=== PATIENT | female | born 1975 | race African-American/Black ===

== ENCOUNTER 2018-09-18 06:48 | Inpatient (IN) | payer BC ==
[2018-09-18] MEDS ORDERED: Heparin 25,000 units/D5W 500 ML ONE (06:58)
[2018-09-18 11:04] LABS: Troponin I Less than 0.010 ng/mL (< 0.028)
[2018-09-18] MEDS ORDERED: Dextrose 5% in Water 1,000 ML IV PRN (11:55)
[2018-09-18] MEDS ORDERED: HumaLOG 300 UNITS/3 ML VIAL SC PRN (11:55)
[2018-09-18] MEDS ORDERED: hydrALAZINE 20 MG/ML VIAL SLOW IVP PRN (11:55)
[2018-09-18] MEDS ORDERED: Dextrose 50% Abboject 50 ML SYRINGE SLOW IVP PRN (11:55)
[2018-09-18] MEDS ORDERED: Ondansetron ODT 4 MG TAB SL PRN (11:57)
[2018-09-18] MEDS ORDERED: Ondansetron PF 4 MG/2 ML Vial IVP PRN (11:57)
[2018-09-18] MEDS ORDERED: Acetaminophen 325 MG TAB PO PRN (11:57)
[2018-09-18 12:21] VITALS: BMI 34.6
[2018-09-18] MEDS: Ondansetron ODT 4 MG TAB PO PRN ×2 (12:46→23:59)
[2018-09-18] MEDS: Acetaminophen 325 MG TAB PO PRN ×2 (12:46→23:59)
--- NOTE | 2018-09-18 14:27 | PDOC.FPRHP ---
- History of Present Illness Chief Complaint: Chest pain History of Present Illness: 42 year old female presents with chest pain onset at 20:33 last night. Patient states the chest pain is sharp in nature, located on left side of chest and radiates into left shoulder. Associated symptoms include nausea and 3 episodes of emesis earlier this morning. Patient states she had similar chest pain once before while in the car driving that resolved on its own. She has never experienced chest pain with exertion. Patient states she has no family history of early CAD. She does have personal history of HTN, DM type II uncontrolled, and HLD. Patient states that nitro relieved chest pain, although it did not relieve it right away. Patient denied chest pain during my evaluation. She denies associated shortness of breath. She states her BG is never less than 200. Nothing in particular made the chest pain worse. Patient does endorse cough over the last few weeks for which she has been taking tessalon pearls. Patient states chest pain worsened by coughing. ED Course: Given Heparin in ED. - Allergies/Adverse Reactions Allergies Allergy/AdvReac Type Severity Reaction Status Date / Time latex Allergy Verified 09/18/18 12:09 - Home Medications Medication Instructions Recorded Confirmed Type Atorvastatin Calcium [Lipitor] 40 mg PO HS 09/18/18 09/18/18 History Benzonatate 1 - 2 tab PO TID PRN 09/18/18 09/18/18 History Lisinopril/Hydrochlorothiazide 1 tab PO DAILY 09/18/18 09/18/18 History [Lisinopril-Hctz 10-12.5 mg Tab] Montelukast Sodium 10 mg PO HS 09/18/18 09/18/18 History Pantoprazole [Protonix] 40 mg PO HS 09/18/18 09/18/18 History metFORMIN HCl [Metformin HCl ER] 750 mg PO DAILY 09/18/18 09/18/18 History - History PMHx: HTN, HLD, DM type II uncontrolled PSHx: BTL, left forearm surgery FHx: Aunt one year old that passed from bilateral PE's Social: Denies alcohol, tobacco, or drug use. 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 - Review of Systems General: denies: fever/chills, weight/appetite/sleep changes Eyes: denies: eye pain, vision changes ENT: denies: nasal congestion, rhinorrhea Respiratory: reports: cough. denies: congestion, shortness of breath Cardiovascular: reports: chest pain. denies: palpitation, edema Gastrointestinal: reports: nausea, vomiting. denies: diarrhea, constipation Genitourinary: denies: incontinence, dysuria, polyuria Skin: denies: rashes, lesions Musculoskeletal: denies: pain, tenderness Neurological: denies: numbness, syncope, seizure Psychological: denies: anxiety, depression - Vital signs BP: 119/65 HR: 77 RR: 20 Tmax: 98.3F Pox: 95% on RA Wt: 77.8 kg - Physical Exam Constitutional: NAD, awake, alert and oriented, well developed HEENT: normocephalic and atraumatic, PERRLA, EOMI, no scleral icterus, grossly normal vision, grossly normal hearing, MMM -Chest: Tender to palpation over left anterior chest wall. Heart: RRR, normal S1/S2, no murmurs/rubs/gallops Lungs: CTAB, no respiratory distress, no wheezing Abdomen: soft, non-tender, bowel sounds present Musculoskeletal: normal structure Neurological: no focal deficit, CN II-XII intact, normal sensation Skin: no rash/lesions, good turgor, capillary refill <2 seconds Heme/Lymphatic: no unusual bruising or bleeding, no purpura Psychiatric: normal mood and affect, good judgment and insight, intact recent and remote memory FMR H&P: A/P - Problem List (1) Atypical chest pain Current Visit: Yes Status: Acute Code(s): R07.89 - OTHER CHEST PAIN (2) LBBB (left bundle branch block) Current Visit: Yes Status: Acute Code(s): I44.7 - LEFT BUNDLE-BRANCH BLOCK, UNSPECIFIED (3) HTN (hypertension) Current Visit: Yes Status: Acute Code(s): I10 - ESSENTIAL (PRIMARY) HYPERTENSION (4) Diabetes type 2, uncontrolled Current Visit: Yes Status: Acute Code(s): E11.65 - TYPE 2 DIABETES MELLITUS WITH HYPERGLYCEMIA (5) HLD (hyperlipidemia) Current Visit: Yes Status: Acute Code(s): E78.5 - HYPERLIPIDEMIA, UNSPECIFIED FMR H&P: Upper Level - Plan Date/Time: 09/18/18 1423 I, [], have evaluated this patient and agree with findings/plan as outlined by academic intern resident. Pertinent changes/additions are listed here. Addendum - Attending - Attending Attestation Date/Time: 09/18/18 8799 I personally evaluated the patient and discussed the management with Dr. Mistry I agree with the History, Examination, Assessment and Plan documented above with any addition or exceptions noted below. 42 yo Diabetic female with atypical CP nonexertional CP with risk factors for CVD will admit r/o ACS and note LBBB will need nuclear med stress imaging.
[2018-09-18] MEDS ORDERED: Benzonatate 100 MG CAP PO PRN (17:35)
[2018-09-18] MEDS: HumaLOG 300 UNITS/3 ML VIAL SC PRN (17:52)
[2018-09-18 18:43] LABS: Hemoglobin A1c 9.3 % (4.0-6.0)
[2018-09-18 18:56] LABS: Anion Gap 13 mmol/L (10-20); BUN (Urea Nitrogen) 12 mg/dL (7.0-18.7); Calc. Creatinine Clearance 128 mL/min (70-130); Calcium 9.1 mg/dL (7.8-10.44); Carbon Dioxide 24 mmol/L (22-29); Chloride 102 mmol/L (98-107); Estimated GFR-MDRD Greater than 90; Glucose 218 mg/dL (70-105); Magnesium 1.5 mg/dL (1.6-2.6); Phosphorus 3.2 mg/dL (2.3-4.7); Potassium 3.6 mmol/L (3.5-5.1); Sodium 135 mmol/L (136-145)
[2018-09-18] MEDS ORDERED: Magnesium Oxide 400 MG TAB PO SCH (20:45)
[2018-09-18] MEDS: Atorvastatin Calcium 20 MG TAB PO SCH (21:09)
[2018-09-18] MEDS: Montelukast Sodium 10 mg Tablet PO SCH (21:09)
--- NOTE | 2018-09-19 08:03 | PDOC.FM ---
- Subjective Subjective: Patient doing well this AM. No significant overnight events. Patient reports that she is feeling much better today. She had one more episode of chest pain which was short lived and resolved on its own. Denies any chest pain, shortness of breath, N/V currently. Discussed BG control. Patient agrees and is willing to be started on insulin. She is going to switch PCPs so that she can get in with someone that can see her more frequently. She understands the importance of good BG control and is willing to comply. She has no hesitations about starting insulin. - Objective MAR Reviewed: Yes Vital Signs & Weight: Vital Signs (12 hours) Temp Pulse Resp BP Pulse Ox 09/19/18 07:41 97.9 F 66 18 131/80 96 09/19/18 04:15 98.1 F 67 15 120/65 98 09/18/18 23:56 99.2 F 89 16 132/64 95 Weight Weight 77.337 kg I&O: 09/18/18 09/19/18 09/20/18 06:59 06:59 06:59 Intake Total 480 Balance 480 Result Diagrams: 09/18/18 18:23 EKG Reviewed by me: Yes Radiology Reviewed by me: Yes Phys Exam - Physical Examination Constitutional: NAD HEENT: moist MMs, oral pharynx no lesions Respiratory: clear to auscultation bilateral Cardiovascular: RRR, no significant murmur Gastrointestinal: soft, non-tender, no distention Musculoskeletal: no edema, pulses present Neurological: non-focal, moves all 4 limbs Psychiatric: normal affect, A&O x 3 Skin: no rash, cap refill <2 seconds Dx/Plan (1) Atypical chest pain Code(s): R07.89 - OTHER CHEST PAIN Status: Acute (2) LBBB (left bundle branch block) Code(s): I44.7 - LEFT BUNDLE-BRANCH BLOCK, UNSPECIFIED Status: Acute (3) HTN (hypertension) Code(s): I10 - ESSENTIAL (PRIMARY) HYPERTENSION Status: Acute (4) Diabetes type 2, uncontrolled Code(s): E11.65 - TYPE 2 DIABETES MELLITUS WITH HYPERGLYCEMIA Status: Acute (5) HLD (hyperlipidemia) Code(s): E78.5 - HYPERLIPIDEMIA, UNSPECIFIED Status: Acute - Plan Plan: 1. Atypical chest pain - Asymptomatic on evaluation - No chest pain with exertion - CP reproducible with palpation of anterior, superior chest wall - EKG did show LBBB, no prior EKG's in our system for comparison (3 additional EKG's with similar findings) - Trop neg x3 - Heart score of 4; RF's include HLD, HTN, DM uncontrolled - Nuclear stress test d/t LBBB; will get second portion today - Nitro PRN - Daily ASA - Continue Atorvastatin - HgA1c 9.4% - FLP pending - TSH and Ph WNL 2. HTN - Continue home medications - PRN for SBP >180 3. Uncontrolled type II DM - Patient only on metformin, but BG never below 200 - She was reportedly taken off other medication because it made her not feel well - SSI and discussion about addition of another medication for better control - Continue ASA, DORITA-I, Statin - HgA1c 9.4% - Had lengthy discussion about recommendation for being on insulin. Patient is completely understanding and willing to start on insulin. Discussed starting in hospital vs. starting as outpatient. Patient plans to switch to PCP she can get in to see more frequently for closer follow up. She will request to be started on insulin once she finds new PCP. I agree with waiting as patient will need close monitoring. 4. HLD - Continue statin Dispo: Tele obs. Pending stress test results. Addendum - Attending - Attending Attestation Date/Time: 09/19/18 1017 I personally evaluated the patient and discussed the management with Dr. Mistry I agree with the History, Examination, Assessment and Plan documented above with any addition or exceptions noted below. Patient pending f/u nuclear imaging this am potential dismissal pending results. Will need outpt PCP f/u consider improved DM control patient expressing willingness to start injectable basal insulin etc.
[2018-09-19] MEDS ORDERED: Nitroglycerin 0.4 MG TAB (25 Tab Bottle) SL PRN (08:05)
[2018-09-19] MEDS: Aspirin 81 mg Enteric Coated Tablet PO SCH (08:15)
[2018-09-19] MEDS: Lisinopril/Hydrochlorothiazide 10 mg/12.5 mg Tablet PO SCH (08:15)
[2018-09-19] MEDS ORDERED: ADENOSINE 60 MG/20 ML VIAL ONE (08:23)
[2018-09-19 08:27] LABS: Cardiac Risk 4.5 (Less than 4.5); Magnesium 1.8 mg/dL (1.6-2.6)
[2018-09-19] MEDS ORDERED: Enoxaparin Sodium 40 MG/0.4 ML SYRINGE SC SCH (09:00)
--- NOTE | 2018-09-19 13:44 | NM ---
Radionucleotide stress and rest myocardial perfusion scan with CT attenuation correction and SPECT im aging HISTORY: Chest pain. Hypertension. FINDINGS: Adenosine protocol. Heterogeneous uptake of radiotracer throughout the left ventricular myocardium. Moderate sized area o f moderately diminished radiotracer uptake involving the apex and distal portion of the anteroseptal wall. Slight improvement on the rest images compared to stress. No other focal areas of perfusion defect. Q GS analysis of gated SPECT images shows relative hypokinesis of the septum. Ejection fraction calcu lated at 58%. IMPRESSION: Probably abnormal perfusion study showing a moderate sized area of mildly reversible perf usion defect. Possible ischemia in the distal portion of the LAD. Preserved LVEF.
[2018-09-19] MEDS: Acetaminophen 325 MG TAB PO PRN (18:41)
[2018-09-19] MEDS: Nitroglycerin 2% Ointment 1 INCH/1 GM Packet TOP SCH (18:42)
[2018-09-19] MEDS: Ondansetron ODT 4 MG TAB PO PRN (19:27)
[2018-09-19] MEDS ORDERED: Ondansetron PF 4 MG/2 ML Vial IVP PRN (20:45)
[2018-09-19] MEDS ORDERED: Ondansetron ODT 4 MG TAB PO PRN (20:45)
[2018-09-19] MEDS ORDERED: Promethazine HCl 25 MG/ML VIAL IM/IV PRN (20:45)
[2018-09-19] MEDS: Enoxaparin Sodium 80 MG/0.8 ML SYRINGE SC SCH (21:12)
[2018-09-19] MEDS: Montelukast Sodium 10 mg Tablet PO SCH (21:12)
[2018-09-19] MEDS: Atorvastatin Calcium 20 MG TAB PO SCH (21:12)
--- NOTE | 2018-09-20 00:29 | CON ---
DATE OF CONSULTATION: HISTORY OF PRESENT ILLNESS: The patient is a 42-year-old woman who presented with left-sided chest discomfort. The patient has no previous cardiac history. She states for the past 2 months she has had occasional left-sided chest discomfort.This radiates into her jaw and down her left arm. This usually last less than a minute. The day of admission, the patient presented with the same discomfort. She became markedly diaphoretic. She presented to the emergency room. The patient received sublingual nitroglycerin with resolution of her chest discomfort. The patient denies having any present chest discomfort. PAST MEDICAL HISTORY: 1. Diabetes mellitus. 2. Hypertension. 3. Hypercholesterolemia. PAST SURGICAL HISTORY: Tubal ligation. MEDICATIONS ON ADMISSION: 1. Metformin 750 daily. 2. Lisinopril/HCTZ 10/12.5 daily. 3. Protonix 40 daily. 4. Lipitor 40 at bedtime. 5. Aspirin tablet daily. 6. Montelukast Sodium 10 mg p.o. at bedtime. ALLERGIES: NO KNOWN DRUG ALLERGIES. FAMILY HISTORY: No strong family history of heart disease. SOCIAL HISTORY: Nonsmoker. REVIEW OF SYSTEMS: Ten-point system otherwise unremarkable. PHYSICAL EXAMINATION: GENERAL: Obese woman, in no acute distress. VITAL SIGNS: Blood pressure 124/73. NECK: No jugular venous distention. LUNGS: Clear to auscultation. HEART: Regular rate and rhythm. Normal S1, S2. No murmurs. ABDOMEN: Nondistended. EXTREMITIES: Showed no edema. SKIN: Warm and dry. NEUROLOGIC: Nonfocal. VASCULAR: Radial pulses are 2+. LABORATORY RESULTS: Her sodium was 135, potassium 3.6, chloride 102, bicarbonate 24, BUN 12, creatinine 0.71, glucose is 218. Her troponin was less than 0.01. White blood cell count was 8.9, hemoglobin 13.1, hematocrit 39.1, platelets are 290. IMAGING: EKG revealed normal sinus rhythm with a left bundle branch block. Her Cardiolite stress test revealed her to have normal left ventricular ejection fraction 58% with ischemia in the distal portion of the LAD. IMPRESSION: 1. Chest pain suggestive of angina. 2. Abnormal stress test. 3. Diabetes mellitus. 4. Hypertension. 5. Left bundle branch block. PLAN: This patient presents with unstable angina. The patient underwent a stress test today that revealed evidence of ischemia. At this time, the patient will be treated with subcutaneous Lovenox and nitroglycerin. We will hold beta james therapy with her conduction disease. We will proceed with cardiac catheterization during this hospitalization. Job ID: [id number] [facility]
[2018-09-20] MEDS: Nitroglycerin 2% Ointment 1 INCH/1 GM Packet TOP SCH ×3 (05:40→21:40)
--- NOTE | 2018-09-20 05:59 | PDOC.FM ---
- Subjective Subjective: No CP, SOB, nausea, vomiting, or abdominal pain overnight. Pt reports phenargan improved her nausea last night. She reports sleeping well. - Objective MAR Reviewed: Yes Vital Signs & Weight: Vital Signs (12 hours) Temp Pulse Resp BP Pulse Ox 09/20/18 03:26 98.4 F 76 16 131/68 98 09/19/18 20:00 95 09/19/18 19:09 98.5 F 82 16 117/58 L 95 Weight Weight 77.337 kg I&O: 09/18/18 09/19/18 09/20/18 06:59 06:59 06:59 Intake Total 480 Balance 480 Result Diagrams: 09/18/18 18:23 Phys Exam - Physical Examination Constitutional: NAD HEENT: moist MMs Neck: no JVD, full ROM Respiratory: no wheezing, no rales, clear to auscultation bilateral Cardiovascular: RRR, no significant murmur, no rub Gastrointestinal: soft, non-tender, no distention, positive bowel sounds Musculoskeletal: no edema, pulses present Neurological: moves all 4 limbs Psychiatric: normal affect, A&O x 3 Skin: normal turgor, cap refill <2 seconds Dx/Plan (1) Unstable angina Status: Acute (2) Diabetes type 2, uncontrolled Code(s): E11.65 - TYPE 2 DIABETES MELLITUS WITH HYPERGLYCEMIA Status: Acute (3) HLD (hyperlipidemia) Code(s): E78.5 - HYPERLIPIDEMIA, UNSPECIFIED Status: Acute (4) HTN (hypertension) Code(s): I10 - ESSENTIAL (PRIMARY) HYPERTENSION Status: Acute (5) LBBB (left bundle branch block) Code(s): I44.7 - LEFT BUNDLE-BRANCH BLOCK, UNSPECIFIED Status: Acute - Plan Plan: This is a 42 yo female with a pmh of HTN, DM2, HLD Unstable angina -EKG shows new LBBB -Stress test shows reversible ischemia -Continue lovenox and PRN nitro -Daily ASA -Pt to be cathed on Saturday -Continue atorvastatin -FLP near goal HTN -Continue Lisinopril HCTZ -PRN for SBP>180 Uncontrolled DM2 -Continue home metformin -Pt is staying the weekend and we will titrate insulin therapy -A1c 9.4% HLD -Continue statin Addendum - Attending - Attending Attestation Date/Time: 09/20/18 9067 I personally evaluated the patient and discussed the management with Dr. Jha I agree with the History, Examination, Assessment and Plan documented above with any addition or exceptions noted below. Patient without complaints denies further CP for Heart catherization Saturday.
[2018-09-20] MEDS: Enoxaparin Sodium 80 MG/0.8 ML SYRINGE SC SCH ×2 (08:43→20:22)
[2018-09-20] MEDS: Lisinopril/Hydrochlorothiazide 10 mg/12.5 mg Tablet PO SCH (08:43)
[2018-09-20] MEDS: Aspirin 81 mg Enteric Coated Tablet PO SCH (08:43)
[2018-09-20] MEDS ORDERED: Insulin Glargine 10 UNITS in Pre-Filled Syringe 1 EACH SC SCH (10:15)
[2018-09-20] MEDS: HumaLOG 300 UNITS/3 ML VIAL SC PRN ×2 (11:18→17:12)
[2018-09-20 17:52] LABS: Hemoglobin 12.8 g/dL (12.0-16.0); Platelet Count 278 thou/uL (130-400)
[2018-09-20 18:08] LABS: Calc. Creatinine Clearance 109 mL/min (70-130); Estimated GFR-MDRD Greater than 90
[2018-09-20] MEDS: Atorvastatin Calcium 20 MG TAB PO SCH (20:22)
[2018-09-20] MEDS: Montelukast Sodium 10 mg Tablet PO SCH (20:22)
[2018-09-21] MEDS: Nitroglycerin 2% Ointment 1 INCH/1 GM Packet TOP SCH ×3 (05:59→20:41)
--- NOTE | 2018-09-21 06:25 | PDOC.FM ---
- Subjective Subjective: Pt reports doing well overnight. She denies CP, headaches, SOB, nausea, or vomiting. - Objective MAR Reviewed: Yes Vital Signs & Weight: Vital Signs (12 hours) Temp Pulse Resp BP Pulse Ox 09/21/18 04:00 98.2 F 77 16 124/67 96 09/20/18 23:21 98.1 F 84 16 117/63 94 L 09/20/18 20:00 94 L 09/20/18 18:50 98.3 F 83 18 113/68 94 L Weight Weight 77.337 kg I&O: 09/19/18 09/20/18 09/21/18 06:59 06:59 06:59 Intake Total 480 1200 Balance 480 1200 Result Diagrams: 09/20/18 17:43 09/20/18 17:43 Phys Exam - Physical Examination Constitutional: NAD HEENT: moist MMs Neck: no JVD, full ROM Respiratory: no wheezing, no rales, clear to auscultation bilateral Cardiovascular: RRR, no significant murmur Gastrointestinal: soft, non-tender, no distention, positive bowel sounds Musculoskeletal: no edema, pulses present Neurological: normal sensation, moves all 4 limbs Psychiatric: normal affect, A&O x 3 Skin: cap refill <2 seconds Dx/Plan (1) Unstable angina Status: Acute (2) Diabetes type 2, uncontrolled Code(s): E11.65 - TYPE 2 DIABETES MELLITUS WITH HYPERGLYCEMIA Status: Acute (3) HLD (hyperlipidemia) Code(s): E78.5 - HYPERLIPIDEMIA, UNSPECIFIED Status: Acute (4) HTN (hypertension) Code(s): I10 - ESSENTIAL (PRIMARY) HYPERTENSION Status: Acute (5) LBBB (left bundle branch block) Code(s): I44.7 - LEFT BUNDLE-BRANCH BLOCK, UNSPECIFIED Status: Acute - Plan Plan: This is a 42 yo female with a pmh of HTN, DM2, HLD Unstable angina -EKG shows new LBBB -Stress test shows reversible ischemia -Continue lovenox and PRN nitro -Daily ASA -Pt to be cathed on Saturday -Continue atorvastatin -FLP near goal HTN -Continue Lisinopril HCTZ -PRN for SBP>180 Uncontrolled DM2 -Continue home metformin -Pt is staying the weekend and we will titrate insulin therapy -A1c 9.4% HLD -Continue statin Addendum - Attending - Attending Attestation Date/Time: 09/21/18 1233 I personally evaluated the patient and discussed the management with Dr. Jha I agree with the History, Examination, Assessment and Plan documented above with any addition or exceptions noted below. 42 yo diabetic female with Chest pain risk factors DM2, HTN, dyslipidemia with abnormal stress test for Heart cath tomorrow.
[2018-09-21] MEDS: HumaLOG 300 UNITS/3 ML VIAL SC PRN ×3 (06:31→16:47)
[2018-09-21] MEDS: Enoxaparin Sodium 80 MG/0.8 ML SYRINGE SC SCH (08:06)
[2018-09-21] MEDS: Lisinopril/Hydrochlorothiazide 10 mg/12.5 mg Tablet PO SCH (08:07)
[2018-09-21] MEDS: Aspirin 81 mg Enteric Coated Tablet PO SCH (08:07)
[2018-09-21] MEDS ORDERED: Insulin Glargine 13 UNITS in Pre-Filled Syringe 1 EACH SC SCH (09:00)
[2018-09-21] MEDS ORDERED: Insulin Glargine 10 UNITS in Pre-Filled Syringe 1 EACH SC SCH (09:00)
[2018-09-21] MEDS ORDERED: Communication Order-Pharmacy FS SCH (12:15)
--- NOTE | 2018-09-21 13:59 | EKG ---
Test Reason : STAT Blood Pressure : / mmHG Vent. Rate : 082 BPM Atrial Rate : 082 BPM P-R Int : 154 ms QRS Dur : 130 ms QT Int : 412 ms P-R-T Axes : 024 -32 111 degrees QTc Int : 481 ms Normal sinus rhythm Left axis deviation Left bundle branch block Abnormal ECG When compared with ECG of 18-SEP-2018 07:09, (Unconfirmed) No significant change was found Confirmed by YESSY HUGHES ([id number]) on 09/21/2018 1:59:11 PM Referred By: NANCY Confirmed By:YESSY HUGHES
[2018-09-21] MEDS: Atorvastatin Calcium 20 MG TAB PO SCH (20:41)
[2018-09-21] MEDS: Montelukast Sodium 10 mg Tablet PO SCH (20:41)
[2018-09-22] MEDS: Nitroglycerin 2% Ointment 1 INCH/1 GM Packet TOP SCH (05:13)
[2018-09-22] MEDS: Aspirin 81 mg Enteric Coated Tablet PO SCH (05:14)
[2018-09-22] MEDS: Lisinopril/Hydrochlorothiazide 10 mg/12.5 mg Tablet PO SCH (08:11)
--- NOTE | 2018-09-22 08:56 | PDOC.FM ---
- Subjective Subjective: Patient doing well this AM. No significant overnight events. Patient denies any chest pain this morning or over the weekend. She is scheduled for cardiac catheterization this AM. She denies shortness of breath or swelling. Patient is in good spirits. - Objective MAR Reviewed: Yes Vital Signs & Weight: Vital Signs (12 hours) Temp Pulse Resp BP Pulse Ox 09/22/18 08:11 82 09/22/18 07:38 97.9 F 76 16 113/66 94 L 09/22/18 04:00 98.3 F 82 16 118/72 96 Weight Weight 76.839 kg I&O: 09/21/18 09/22/18 09/23/18 06:59 06:59 06:59 Intake Total 1200 Balance 1200 Result Diagrams: 09/20/18 17:43 09/20/18 17:43 EKG Reviewed by me: Yes Radiology Reviewed by me: Yes Phys Exam - Physical Examination Constitutional: NAD HEENT: moist MMs Respiratory: clear to auscultation bilateral Cardiovascular: RRR, no significant murmur Gastrointestinal: soft, non-tender, no distention, positive bowel sounds Musculoskeletal: no edema, pulses present Neurological: non-focal, moves all 4 limbs Psychiatric: normal affect, A&O x 3 Dx/Plan (1) Unstable angina Status: Acute (2) LBBB (left bundle branch block) Code(s): I44.7 - LEFT BUNDLE-BRANCH BLOCK, UNSPECIFIED Status: Acute (3) HTN (hypertension) Code(s): I10 - ESSENTIAL (PRIMARY) HYPERTENSION Status: Acute (4) Diabetes type 2, uncontrolled Code(s): E11.65 - TYPE 2 DIABETES MELLITUS WITH HYPERGLYCEMIA Status: Acute (5) HLD (hyperlipidemia) Code(s): E78.5 - HYPERLIPIDEMIA, UNSPECIFIED Status: Acute - Plan Plan: This is a 42 yo female with a PMH of HTN, DM2, HLD Unstable angina - EKG shows likely new LBBB given stress test results (no EKG's for comparison) - Stress test shows reversible ischemia in distal LAD - PRN nitro - Therapeutic lovenox d/c'd yesteraay AM in preparation for cardiac cath this AM - Daily ASA - Pending cardiac cath this AM - Continue high intensity atorvastatin - FLP near goal - Cardiology consulted; appreciate recs HTN - Continue Lisinopril/HCTZ - PRN for SBP>180 Uncontrolled DM2 - Continue home metformin - Started on insulin therapy during hospitalization. Continue titration. - A1c 9.4% HLD - Continue statin HFrEF likely 2/2 ischemic heart disease - Recent echo w/ EF 40-45% - Continue DORITA-I, statin, ASA - BB to be added after cardiac cath - Pending cardiac cath; abnormal stress test with reversible ischemia of distal LAD Dispo: Pending cardiac cath this AM. Dispo pending results of cath and Cards recs. Addendum - Attending - Attending Attestation Date/Time: 09/23/18 1233 I personally evaluated the patient and discussed the management with Dr. Mistry on 09/22/2018 I agree with the History, Examination, Assessment and Plan documented above with any addition or exceptions noted below - Patient without complaints. Just returned from cardiac cath which was negative per patient. Afebrile VSS. A/P: 1 ) Chest pain- negative cath. Plan to d/c home later today. 2) DM- stable; continue to adjust medication as outpatient.
[2018-09-22] MEDS ORDERED: Insulin Glargine 18 UNITS in Pre-Filled Syringe 1 EACH SC SCH (09:00)
[2018-09-22] MEDS ORDERED: Iopamidol 370 76% 100 ML VIAL ONE (09:50)
[2018-09-22] MEDS ORDERED: Midazolam HCl 2 mg/2 ml Vial ONE (10:21)
[2018-09-22] MEDS ORDERED: Sodium Chloride 0.9% 200 ML IV PRN (10:43)
[2018-09-22] MEDS ORDERED: Acetaminophen/Codeine 30-300mg Tablet PO PRN ×2 (10:43)
[2018-09-22] MEDS ORDERED: Nitroglycerin 0.4 MG TAB (25 Tab Bottle) SL PRN (10:43)
[2018-09-22] MEDS: Acetaminophen 325 MG TAB PO PRN (12:01)
[2018-09-22 15:51] VITALS: BP 141/68; TEMP 97.8
--- NOTE | 2018-09-23 05:40 | DIS ---
DATE OF ADMISSION: 09/19/2018 DATE OF DISCHARGE: 09/22/2018 RESIDENT: Melissa Mistry DO ADMITTING ATTENDING: Eliezer Murcia MD DISCHARGE ATTENDING: Laura Burk MD CONSULTS: Cardiology, John Grissom MD PROCEDURES PERFORMED: 1. Radionuclide stress and rest myocardial perfusion scan with CT attenuation correction. SPECT imaging showed probably abnormal perfusion study showing a moderate-sized area of mildly reversible perfusion defect. There is possible ischemia in the distal portion of the LAD. 2. Cardiac cath showed normal ejection fraction and no evidence of stenosis. There were small vessels noted in the distal LAD, as well as RCA. 3. Echocardiogram showed an ejection fraction estimated at 40% to 50% with normal left atrium. There is impaired relaxation compatible with diastolic dysfunction and mild tricuspid regurgitation. PRIMARY DIAGNOSES: 1. Unstable angina. 2. Left bundle branch block, possibly new. 3. Hypertension. 4. Uncontrolled diabetes mellitus type 2. 5. Hyperlipidemia. DISCHARGE MEDICATIONS: 1. Atorvastatin calcium 40 mg p.o. at bedtime. 2. Benzonatate 100 mg capsule 1 to 2 tablets p.o. t.i.d. 3. Lisinopril-hydrochlorothiazide 10 mg/12.5 mg, one tablet p.o. daily. 4. Metformin 750 mg p.o. daily. 5. Montelukast 10 mg p.o. at bedtime. 6. Pantoprazole 40 mg p.o. at bedtime. 7. Aspirin 81 mg p.o. daily. 8. Insulin glargine 18 units subcu daily. 9. Imdur 30 mg p.o. daily. HISTORY OF PRESENT ILLNESS/HOSPITAL COURSE: This is a very pleasant 42-year-old female, who presented to the emergency department with chest pain. The patient was transferred from [facility] with unstable angina. On arrival to the emergency department in [place], the patient was asymptomatic. She states that the pain started around 10:00 p.m. the prior night. Nothing in particular made it worse to include walking. The patient did take nitroglycerin, which eventually helps relieve the pain. The patient was diaphoretic with chest pain and endorsed some radiation into the left shoulder. She had not had any extensive history of chest pain previously except for one episode that she endorsed while driving. At that time, the chest pain went away after several seconds. Of note, the patient's chest was very tender to palpation in the left anterior aspect of the chest. She said that palpation reproduces same pain that she was experiencing, which was a sharp pain rather than a pressure-like pain. D-dimer was performed which was within normal limits. The troponins were all negative at less than 0.010. EKG did show left bundle branch block. This was patient's first hospitalization here as we had no prior EKGs for comparison. Given that this could potentially be a new left bundle branch block, it did raise suspicion for cardiac etiology. The patient underwent a cardiac stress test, which did show a possible reversible ischemia in the distal LAD. However, on cardiac catheterization, no stenosis was identified. The patient was just noted to have small vessels in the distal LAD, which likely is contributing to her chest pain. Echo did show reduced ejection fraction of 40% to 50%, cardiac catheterization showed normal ejection fraction. Thus, the patient did not have heart failure and did not need to be started on medications for heart failure. The patient was started on Imdur per Cardiology to help with the angina. The patient was advised to follow with Cardiology and to establish with a PCP, whom she was willing to follow closely with. The patient was noted to have uncontrolled diabetes, hemoglobin A1c of 9.4. She has only been on metformin. She was previously on an oral agent, which she said made her not feel well and she is often not be on oral agents since that time. After lengthy discussion about the risks of uncontrolled diabetes particularly associated with strokes and myocardial infarction, the patient was agreeable starting on insulin. She was titrated on Lantus during this hospitalization and got up to 18 units and her blood sugars were running in the mid to upper 100, which is better than the 200s to 300s that were running previously. The patient's lipid panel was almost at goal. Her LDL was 93 and HDL of 32. TSH was normal. The patient was advised to follow with Dr. Jha at [facility] within 7 days of discharge from the hospital to ensure that she is getting a proper titration of her insulin and also to follow up on her chest pain. The patient was agreeable to all of these interventions as discussed and really wanted to follow with Dr. Jha going forward. DISPOSITION: Stable. DISCHARGE INSTRUCTIONS: 1. Location: Home. 2. Activity: Cardiopulmonary limitations. 3. Diet: Heart healthy, diabetic diet. 4. Followup: The patient is to follow up with Dr. Jha at [facility] within 7 days of discharge from the hospital. Job ID: [id number]
== END 2018-09-22 17:18 | disposition home or self-care (01) | DRG 287 ==
LOC: ERS 06:48 → 2SW 09:00 → OBSVTOIN 11:55 → INTOOBSV 11:55 → OBSVTOIN 09-19 17:15
PROVIDERS: ADMIT Family Medicine; ATTEND Family Medicine
PROC: 4A023N7 Measurement of Cardiac Sampling and Pressure, Left Heart, Percutaneous Approach (ICD-10-PCS; principal; 2018-09-22)
PROC: B2151ZZ Fluoroscopy of Left Heart using Low Osmolar Contrast (ICD-10-PCS; 2018-09-22)
PROC: B2111ZZ Fluoroscopy of Multiple Coronary Arteries using Low Osmolar Contrast (ICD-10-PCS; 2018-09-22)
DX: I20.0 Unstable angina (principal); I44.7 Left bundle-branch block, unspecified; E78.00 Pure hypercholesterolemia, unspecified; I10 Essential (primary) hypertension; E11.65 Type 2 diabetes mellitus with hyperglycemia; Z79.84 Long term (current) use of oral hypoglycemic drugs; Z79.899 Other long term (current) drug therapy; Z91.040 Latex allergy status; Z98.51 Tubal ligation status
CPT/HCPCS: 36415; 36416; 78452; 80048; 80061; 82565; 83036; 83735; 84100; 84443; 84484; 85014; 85018; 85049; 93005; 93010; 93017; 93306; 93458; 99152; A9500; C1769; J0153; J1644; J1650; J1825; J2250; J2550; Q0162; Q9967

== ENCOUNTER 2018-10-17 12:13 | Outpatient (CLI) | payer BC ==
--- NOTE | 2018-10-23 16:17 | MMO ---
Bilateral MAMMO Bilat Screen [facility]. CLINICAL HISTORY: Patient is 43 years old and is seen for screening. The patient has no family history of breast cancer. The patient has no personal history of cancer. VIEWS: The views performed were: bilateral craniocaudal with tomosynthesis and bilateral mediolateral oblique with tomosynthesis. FILMS COMPARED: The present examination has been compared to a prior imaging study performed at [facility] on 07/30/2016. MAMMOGRAM FINDINGS: The breasts are almost entirely fat. There are no suspicious masses, suspicious calcifications, or new areas of architectural distortion. IMPRESSION: THERE IS NO MAMMOGRAPHIC EVIDENCE OF MALIGNANCY. A ROUTINE FOLLOW-UP MAMMOGRAM IN 1 YEAR IS RECOMMENDED. THE RESULTS OF THIS EXAM WERE SENT TO THE PATIENT. ACR BI-RADS Category 1 - Negative MAMMOGRAPHY NOTE: 1. A negative mammogram report should not delay a biopsy if a dominant of clinically suspicious mass is present. 2. Approximately 10% to 15% of breast cancers are not detected by mammography. 3. Adenosis and dense breasts may obscure an underlying neoplasm.
== END 2018-10-17 12:14 | disposition home or self-care (01) ==
LOC: BICMAMMO 12:13
PROVIDERS: ATTEND Family Medicine
DX: Z12.31 Encounter for screening mammogram for malignant neoplasm of breast (principal)
CPT/HCPCS: 77063; 77067

== ENCOUNTER 2021-09-29 04:38 | Observation (INO) | payer BC ==
[2021-09-29] MEDS ORDERED: Promethazine HCl 25 MG/ML VIAL ONE (04:51)
[2021-09-29] MEDS ORDERED: Morphine 4 MG/ML VIAL ONE (05:25)
[2021-09-29 06:16] LABS: #Monocytes 0.4 thou/uL (0.11-0.59); #Neutrophils 6.6 thou/uL (1.40-6.50); %Eosinophils 0.4 % (0.0-10.0); %Lymphocytes 12.5 % (21.0-51.0); %Monocytes 4.9 % (0.0-10.0); %Neutrophils 82.3 % (42.0-75.0); Hemoglobin 11.4 g/dL (12.0-16.0); Mean Corpuscular HGB CONC 31.8 g/dL (32.0-36.0); Mean Corpuscular Hemoglobin 27.6 pg (27.0-31.0); Mean Corpuscular Volume 86.8 fL (78.0-98.0); Mean Platelet Volume 8.6 fL (7.4-10.4); Platelet Count 170 thou/uL (130-400); RBC Distribution Width 12.7 % (11.5-14.5); Red Blood Cell (RBC) Count 4.12 mill/uL (4.20-5.40)
[2021-09-29 06:28] LABS: Prothrombin Time 13.3 sec (12.0-14.7)
[2021-09-29 06:29] LABS: ALT (SGPT) 13 U/L (8-55); AST (SGOT) 15 U/L (5-34); Albumin 3.7 g/dL (3.5-5.0); Alkaline Phosphatase 90 U/L (40-110); Anion Gap 13 mmol/L (10-20); BUN (Urea Nitrogen) 9 mg/dL (7.0-18.7); Bilirubin, Total 0.2 mg/dL (0.2-1.2); Calc. Creatinine Clearance 0 mL/min (70-130); Carbon Dioxide 23 mmol/L (22-29); Chloride 108 mmol/L (98-107); Globulin 3.6 g/dL (2.4-3.5); Glucose 239 mg/dL (70-105); Potassium 3.9 mmol/L (3.5-5.1); Protein, Total 7.3 g/dL (6.0-8.3); Sodium 140 mmol/L (136-145)
[2021-09-29] MEDS ORDERED: Ondansetron PF 4 MG/2 ML Vial IVP PRN (06:50)
[2021-09-29] MEDS ORDERED: Ondansetron ODT 4 MG TAB PO PRN (06:50)
[2021-09-29] MEDS ORDERED: Sodium Chloride 0.9% 1,000 ML IV SCH ×2 (07:00→08:00)
[2021-09-29 07:51] VITALS: BMI 30.7
[2021-09-29] MEDS ORDERED: Dextrose 50% Abboject 50 ML SYRINGE SLOW IVP PRN (07:54)
[2021-09-29] MEDS ORDERED: Acetaminophen 325 MG TAB PO PRN (07:54)
[2021-09-29] MEDS ORDERED: Insulin Regular 300 UNITS/3 ML VIAL SC PRN (07:54)
[2021-09-29] MEDS ORDERED: Dextrose 5% in Water 1,000 ML IV PRN (07:54)
[2021-09-29 10:44] LABS: SARS-CoV-2 NAA Rapid Test Not Detected (NotDetected)
[2021-09-29 11:25] LABS: Bacteria/HPF None Seen HPF (None Seen)
[2021-09-29 12:10] VITALS: BP 136/79; TEMP 98
[2021-09-29] MEDS ORDERED: Ioversol 68 % 50 ML VIAL ONE (12:52)
[2021-09-29] MEDS ORDERED: cefTRIAXone\\ROCEPHIN 1 GM VIAL ONE (13:35)
[2021-09-29] MEDS ORDERED: Sodium Chloride 0.9% 100 ML ONE (13:36)
[2021-09-29] MEDS ORDERED: fentaNYL Citrate/PF 100 MCG/2 ML SYRINGE ONE (13:37)
[2021-09-29] MEDS ORDERED: Famotidine/PF 20 mg/2ml Vial ONE (13:38)
[2021-09-29] MEDS ORDERED: SUGAMMADEX SODIUM 200 MG/2 ML VIAL ONE (13:38)
[2021-09-29] MEDS ORDERED: ePHEDrine 50 MG/ML VIAL ONE (13:40)
[2021-09-29] MEDS ORDERED: Lidocaine 1% PF 5 ML VIAL ONE (13:40)
[2021-09-29] MEDS ORDERED: PROPOFOL 200 MG/20 ML VIAL ONE (13:40)
[2021-09-29] MEDS ORDERED: Ondansetron PF 4 MG/2 ML Vial ONE (13:40)
[2021-09-29] MEDS ORDERED: Metoclopramide HCl 10 MG/2 ML VIAL ONE (13:40)
[2021-09-29] MEDS ORDERED: Rocuronium Bromide 10 MG/ML (10ML VIAL) ONE (13:40)
[2021-09-29] MEDS ORDERED: B & O ONE (14:06)
== END 2021-09-29 16:15 | disposition home or self-care (01) ==
LOC: ERS 04:38 → INTOOBSV 05:47 → SURG A 05:47
PROVIDERS: ADMIT Internal Medicine; ATTEND Physician Assistant
PROC: 0T768DZ Dilation of Right Ureter with Intraluminal Device, Via Natural or Artificial Opening Endoscopic (ICD-10-PCS; principal; 2021-09-29)
DX: N13.2 Hydronephrosis with renal and ureteral calculous obstruction (principal); E11.65 Type 2 diabetes mellitus with hyperglycemia; I10 Essential (primary) hypertension; E78.5 Hyperlipidemia, unspecified; Z79.4 Long term (current) use of insulin; Z79.82 Long term (current) use of aspirin; Z79.84 Long term (current) use of oral hypoglycemic drugs; Z79.899 Other long term (current) drug therapy; Z91.040 Latex allergy status; Z20.822 Contact with and (suspected) exposure to COVID-19
CPT/HCPCS: 36415; 36416; 74420; 80053; 81015; 85025; 85610; C2617; G0378; J0696; J2270; J2405; J2550; J2704; J2765; J3490; J7050; Q9967; S0028; U0002

== ENCOUNTER 2021-10-17 11:30 | Outpatient (CLI) | payer BC ==
[2021-10-17 12:29] LABS: Hemoglobin 11.7 g/dL (12.0-15.5); Mean Corpuscular Volume 81.3 fl (81.6-98.3); Mean Platelet Volume 10.1 fl (7.4-10.4); Platelet Count 325 10x3/uL (150-450); RBC Distribution Width 13.6 % (11.5-14.5); White Blood Cell (WBC) Count 6.4 10x3/uL (3.5-10.5)
[2021-10-17 12:43] LABS: Clarity Slightly Cloudy (Clear); Specific Gravity, Urine 1.015 (1.002-1.036)
[2021-10-17 12:58] LABS: PTT 27.6 sec (22.0-33.0); Prothrombin Time 10.5 sec (9.5-12.1)
[2021-10-17 13:00] LABS: Anion Gap 14 mmol/L (10-20); BUN (Urea Nitrogen) 10 mg/dL (7.0-18.7); Calc. Creatinine Clearance 0 mL/min (70-130); Calcium 9.3 mg/dL (7.8-10.44); Carbon Dioxide 26 mmol/L (22-29); Chloride 104 mmol/L (98-107); Glucose 175 mg/dL (70-105); Potassium 4.2 mmol/L (3.5-5.1); Sodium 140 mmol/L (136-145)
[2021-10-17 14:17] LABS: Leukocyte Unable to Interpret (Negative); Nitrite Unable to Interpret (Negative); Protein, Urine (Dipstick) Unable to Interpret mg/dl (Neg-Trace)
[2021-10-17 14:19] LABS: Bilirubin Unable to Interpret (Negative); Glucose, Urine (Dipstick) Unable to Interpret mg/dL (Negative); Ketone, Urine Unable to Interpret mg/dL (Negative); Urobilinogen UNABLE TO INTERPRET mg/dL (Less than 2)
[2021-10-17 14:20] LABS: Blood, Urine Unable to Interpret (Negative)
[2021-10-17 15:13] LABS: RBC/HPF Greater than 50 HPF (0-3)
[2021-10-17 15:15] LABS: Bacteria/HPF 2+ HPF (None Seen)
[2021-10-18 00:19] LABS: SARS-CoV-2 PCR by NAA Not Detected (NotDetected)
== END 2021-10-17 11:31 | disposition home or self-care (01) ==
LOC: LABBT 11:30
PROVIDERS: ATTEND Urology
DX: Z01.818 Encounter for other preprocedural examination (principal); E11.9 Type 2 diabetes mellitus without complications; N20.0 Calculus of kidney; Z20.822 Contact with and (suspected) exposure to COVID-19
CPT/HCPCS: 80048; 81001; 85027; 85610; 85730; 87086; 93005; 93010; U0003; U0005

== ENCOUNTER 2021-10-20 08:55 | Day surgery (SDC) | payer BC ==
[2021-10-18 12:30] VITALS: BMI 30.7
[2021-10-20] MEDS ORDERED: Fentanyl 100 MCG/2 ML VIAL ONE (11:51)
[2021-10-20] MEDS ORDERED: Dexmedetomidine 200 MCG/2 ML VIAL ONE (11:51)
[2021-10-20] MEDS ORDERED: Levofloxacin 500 mg/D5W 100 ml Premix Bag ONE (11:54)
== END 2021-10-20 16:10 | disposition home or self-care (01) ==
LOC: SDC 08:55
PROVIDERS: ATTEND Urology
PROC: 0T768DZ Dilation of Right Ureter with Intraluminal Device, Via Natural or Artificial Opening Endoscopic (ICD-10-PCS; principal; 2021-10-20)
PROC: 0TC38ZZ Extirpation of Matter from Right Kidney Pelvis, Via Natural or Artificial Opening Endoscopic (ICD-10-PCS; principal; 2021-10-20)
DX: N20.0 Calculus of kidney (principal); E11.9 Type 2 diabetes mellitus without complications; E78.5 Hyperlipidemia, unspecified; I10 Essential (primary) hypertension; K21.9 Gastro-esophageal reflux disease without esophagitis; I20.9 Angina pectoris, unspecified; Z79.4 Long term (current) use of insulin; Z79.82 Long term (current) use of aspirin; Z79.899 Other long term (current) drug therapy; Z91.040 Latex allergy status
CPT/HCPCS: 76000; C1713; C2617; J1956; J3010

== ENCOUNTER 2025-05-05 08:58 | Outpatient (CLI) | payer OTHER | END 2025-05-05 08:59 | disposition home or self-care (01) | LOC: RAD 08:58 | PROVIDERS: ATTEND Internal Medicine Critical Care Medicine | DX: R06.00 Dyspnea, unspecified (principal) | CPT/HCPCS: 71046 ==